=== PATIENT | female | born 1970 | race Caucasian/White ===

== ENCOUNTER 2017-04-08 09:44 | Emergency (ER) | payer OTHER ==
[2017-04-08] MEDS ORDERED: METHYLPREDNISOLONE SOD 125 MG/2 ML VIAL ONE (10:11)
[2017-04-08] MEDS ORDERED: IPRATROPIUM/ALBUTEROL 0.5/3 MG 3 ML AMPUL.NEB INHALATION ONE (10:11)
[2017-04-08 10:12] LABS: BASOPHIL# 0.1 X 10^3uL (0.0-0.1); BASOPHILS 1.3 % (0.0-2.0); EOSINOPHILS 1.7 % (0.0-6.0); EOSINOPHILS# 0.1 X 10^3uL (0.0-0.4); HEMOGLOBIN 16.2 g/dL (12.0-16.0); LYMPHOCYTES 31.2 % (20.0-40.0); LYMPHOCYTES# 2.4 X 10^3uL (0.8-3.8); MEAN CELL VOLUME 91.6 fL (80.0-100.0); MEAN CORPUS. HGB CONCENTRATION 33.7 g/dL (32.0-36.0); MEAN CORPUSCULAR HEMOGLOBIN 30.9 pg (29.0-35.0); MEAN PLATELET VOLUME 8.6 fL (7.4-10.4); MONOCYTES 5.3 % (2.0-10.0); MONOCYTES# 0.4 X 10^3uL (0.2-1.0); NEUTROPHILS 60.5 % (54.0-75.0); NEUTROPHILS# 4.8 X 10^3uL (2.6-6.7); PLATELET COUNT 292 X 10^3uL (130-440); RED BLOOD COUNT 5.24 X 10^6uL (4.20-6.10); RED CELL DISTRIBUTION WIDTH 12.4 % (11.5-14.5); WHITE BLOOD COUNT 7.8 X 10^3uL (3.9-10.7)
[2017-04-08] MEDS ORDERED: MAGNESIUM SULFATE 1 GM/2 ML VIAL ONE (10:20)
[2017-04-08] MEDS ORDERED: NORMAL SALINE 250 ML IV ONE (10:20)
[2017-04-08 10:25] LABS: BLOOD UREA NITROGEN 15 mg/dL (7-17); C-REACTIVE PROTEIN 9.3 mg/L (<10.0); CALCIUM 10.4 mg/dL (8.4-10.2); CHLORIDE 108 mmol/L (98-107); EST GLOMERULAR FILTRATION RATE > 60 mL/min; GLUCOSE 94 mg/dL (70-100); POTASSIUM 4.1 mmol/L (3.5-5.1); SODIUM 143 mmol/L (137-145)
--- NOTE | 2017-04-08 11:58 | RADIOLOGY REPORT ---
HISTORY: Chest pain. COMPARISON: None available. FINDINGS: 1 view of the chest obtained. Normal heart size and central pulmonary vessels. Normal mediastinal c ontour. No focal infiltrates. No pleural effusion. No pneumothorax. No focal bony abnormalities miriam ntified. IMPRESSION: No evidence for active cardiopulmonary disease. Final Electronic Signature: This report was electronically signed by Yahir Alva MD, FACR on 04/08/2017 11:56 AM. екатерина /
[2017-04-08 12:06] LABS: CKMB < 0.22 ng/mL (0.00-2.37); TROPONIN I < 0.012 ng/mL (0.00-0.034)
[2017-04-08 12:12] LABS: LIPASE 66 U/L (23-300)
--- NOTE | 2017-04-08 12:53 | ER NURSING DOCUMENTATION ---
Nurse's Notes [facility] Name:Lisa Baker Age:46 yrs Sex:Female :1970 Arrival Date:04/08/2017 Time:09:44 BedTrauma-C Private MD: Diagnosis:Bronchitis Asthmatic Presentation: 04/08 09:49 Presenting complaint: Patient states: pt has had 4 days of indigestion, troubles st sleeping, SOB and getting dizzy easily. Transition of care: Home. AIR CAT ACTIVATION no. Asprin Given Given in ED 324 mg po. 09:49 Acuity: LIZ 2 st 09:49 Method Of Arrival: Private Vehicle st Triage Assessment: 10:12 General: Appears in no apparent distress, Behavior is cooperative. Pain: Complains of st pain in anterior aspect of left upper chest and left breast Pain currently is 3 out of 10 on a pain scale. At worst was 8 out of 10 on a pain scale. Pain began about four days ago. Aggravated by activity makes it worst. Cardiovascular: Capillary refill < 3 seconds Heart tones present Reports shortness of breath getting dizzy easily. Rhythm is sinus rhythm Chest pain quality is pressure, "heart burn". Respiratory: Airway is patent Respiratory effort is even, unlabored, Respiratory pattern is regular, symmetrical, Breath sounds with wheezes bilaterally. Reports shortness of breath on exertion troubles sleeping. Historical: - Allergies: No known drug Allergies; - Home Meds: 1. None - PMHx: None; - PSHx: None; - Tetanus: unknown. - Ebola Screening: : Patient denies exposure to infectious person. Patient denies travel to an Ebola-affected area in the 21 days before illness onset. . - Immunization history: Unable to Obtain. - Social history: Smoking status: Patient uses tobacco products, current every day smoker. Patient uses marijuana Patient/guardian denies using alcohol. Screenin:15 Infectious Disease Risk None. Abuse screen: Denies threats or abuse. Denies injuries st from another. pt feels safe at home. Nutritional screening: No deficits noted. Assessment: 11:37 General: pt resting quietly. . st 12:23 General: pt walked around on a road test pt got dizzy and nauseated. pt pulse came up st as high as 113 O2 saturation did not drop below 92%. pt was veg when describing how her breathing and chest discomfort were but stated they were both "OK" but not gone. . Vital Signs: 09:45 BP 110 / 79 (auto/); st 09:46 Pulse 78 MON; Resp 24; Pulse Ox 91% ; Weight 54.43 kg; Height 4 ft. 11 in. (149.86 cm); st Pain 3/10; 10:00 BP 109 / 76 (auto/); st 10:01 Pulse 65 MON; Resp 12; Pulse Ox 100% ; st 10:15 BP 103 / 71 (auto/); st 10:16 Pulse 69 MON; Resp 17; Pulse Ox 98% ; st 10:30 BP 113 / 75 (auto/); st 10:31 Pulse 85 MON; Resp 19; Pulse Ox 96% ; st 11:00 BP 102 / 68 (auto/); st 11:01 Pulse 79 MON; Resp 20; Pulse Ox 95% ; st 11:30 BP 94 / 64 (auto/); st 11:31 Pulse 94 MON; Resp 20; Pulse Ox 97% ; st 12:11 Pulse 84 MON; Resp 17; Pulse Ox 95% ; st 12:16 BP 94 / 71 (auto/); st 09:46 Body Mass Index 24.24 (54.43 kg, 149.86 cm) st ED Course: 09:40 Inserted peripheral IV: 18 gauge in right antecubital area and blood collected. cb 09:40 Labs drawn. (by ED staff). Sent per order to lab. cb 09:43 EKG done per protocol. Performed by ED Staff. Shown to ED physician. st 09:47 Patient arrived in ED. arc 09:48 Matilda Booth, RN is Primary Nurse. st 09:50 telemetry monitor on. Pulse ox on. NIBP on. st 09:[address] 10:03 Labs drawn. (by ED staff). st 10:10 Keenan Jimenez MD is Attending Physician. be 10:15 Valuables Remains with patient Patient has correct armband on for positive st identification. Placed in gown. Bed in low position. 11:34 Port Xray Completed. hz 12:[address] Administered Medications: 09:55 Drug: Aspirin Chewable Tablet 324 mg; Route: PO; st 11:36 Follow up: Response: No adverse reaction st 10:02 Drug: DuoNeb (Albuterol 2.5 mg, Atrovent 0.5 mg); 3 ml; Route: Nebulizer; st 11:36 Follow up: lungs are clear. st 10:02 Drug: DuoNeb (Albuterol 2.5 mg, Atrovent 0.5 mg); 3 ml; {Note: two duo nebs placed in st container together. .} Route: Nebulizer; 11:36 Follow up: Response: lungs are clear. st 10:02 Drug: Solu-MEDROL 125 mg; Route: IVP; Site: right antecubital; st 11:36 Follow up: Response: No adverse reaction st 10:11 Drug: Magnesium Sulfate 2 grams; Route: IVPB; Infused Over: 2 hrs; Site: right st antecubital; 12:22 Follow up: IV Status: Completed infusion; IV Intake: 250ml st 12:22 Drug: NS 0.9% 1000 ml; Route: IV; Rate: bolus; Site: right antecubital; st 12:51 Follow up: IV Status: Completed infusion; IV Intake: 1000ml st Intake: 12:22 IV: 250ml; Total: 250ml. st 12:51 IV: 1000ml; Total: 1250ml. st Outcome: 12:12 Discharge ordered by . be 12:51 Discharged to home ambulatory. st 12:51 Condition: improved 12:51 Discharge instructions given to patient, significant other, Instructed on discharge instructions, follow up and referral plans. medication usage, Prescriptions given X 3. 12:51 Patient [address] the ED. st 04/09 17:00 Discharge F/U Call: Unable to reach: no answer Signatures: Alcira Lopez RN RN cb Twombly, Summer, RN RN st Coleman, Linda, RN RN lc Elliott, Brian, MD MD be Chew, Amelia, [facility] Berna Anaya
--- NOTE | 2017-04-08 12:54 | ER PHYSICIAN DOCUMENTATION ---
Physician Documentation [facility] Name:Lisa Baker Age:46 yrs Sex:Female :1970 Arrival Date:04/08/2017 Time:09:44 BedTrauma-C Private MD: Keenan Alonso Disposition: 04/08 13:20 Critical Care: not applicable. be Disposition: 04/08/17 12:12 Discharged to Home/Self Care. Impression: Bronchitis Asthmatic. - Condition is Good. - Discharge Instructions: ASTHMATIC BRONCHITIS Adult - BRONCHITIS w/ Wheezing (Adult). - Prescriptions for albuterol sulfate 90 mcg/actuation Inhalation HFA aerosol inhaler - inhale 2 puff by INHALATION route every 4-6 hours PRN chest tightness; 1 Cartridge. Prednisone 20 mg Oral Tablet - take 2 tablet by ORAL route once daily for 5 days; 10 tablet. Doxycycline Hyclate 100 mg Oral Tablet - take 1 tablet by ORAL route every 12 hours; 20 tablet. - Medical Reconciliation form form. - Follow up: Private Physician; When: As needed; Reason: Recheck today's complaints, Continuance of care. - Problem is new. - Symptoms have improved. HPI: 12:14 This 46 yrs old Female presents to ER via Private Vehicle with complaints of be Chest Pain > 30 y/o. 12:14 The patient or guardian reports chest pain that is located primarily in the substernal be area. Onset: 3 day(s) ago. The pain radiates to the left shoulder. There has been no movement of pain. Associated signs and symptoms: Pertinent positives: nausea, shortness of breath, Pertinent negatives: cough, diaphoresis, lower extremity swelling, lightheadedness, near syncope. The chest pain is described as a heaviness, squeezing. EMS care prior to arrival includes: smoker. Historical: - Allergies: No known drug Allergies; - Home Meds: 1. None - PMHx: None; - PSHx: None; - Tetanus: unknown. - Ebola Screening: : Patient denies exposure to infectious person. Patient denies travel to an Ebola-affected area in the 21 days before illness onset. . - Immunization history: Unable to Obtain. - Social history: Smoking status: Patient uses tobacco products, current every day smoker. Patient uses marijuana Patient/guardian denies using alcohol. ROS: 12:15 Cardiovascular: Positive for chest pain, with movement, Negative for edema, orthopnea, be palpitations, paroxysmal nocturnal dyspnea. 12:15 All other systems are negative. Exam: 12:16 Constitutional: This is a well developed, well nourished patient who is awake, alert, be and in no acute distress. Head/Face: Normocephalic, atraumatic. Eyes: Pupils equal round and reactive to light, extra-ocular motions intact. Lids and lashes normal. Conjunctiva and sclera are non-icteric and not injected. Cornea within normal limits. Periorbital areas with no swelling, redness, or edema. Chest/axilla: Normal chest wall appearance and motion. Nontender with no deformity. No lesions are appreciated. Abdomen/GI: Soft, non-tender, with normal bowel sounds. No distension or tympany. No guarding or rebound. No evidence of tenderness throughout. Skin: Warm, dry with normal turgor. Normal color with no rashes, no lesions, and no evidence of cellulitis. MS/ Extremity: Pulses equal, no cyanosis. Neurovascular intact. Full, normal range of motion. Neuro: Awake and alert, GCS 15, oriented to person, place, time, and situation. Cranial nerves II-XII grossly intact. Motor strength 5/5 in all extremities. Sensory grossly intact. Cerebellar exam normal. Normal gait. 12:16 Psych: Awake, alert, with orientation to person, place and time. Behavior, mood, and be affect are within normal limits. 12:16 Cardiovascular: Rate: normal, Rhythm: regular. 12:16 Respiratory: the patient does not display signs of respiratory distress, Respirations: no acute changes, is not noted, Breath sounds: wheezing, that is mild. Vital Signs: 09:45 BP 110 / 79 (auto/); st 09:46 Pulse 78 MON; Resp 24; Pulse Ox 91% ; Weight 54.43 kg; Height 4 ft. 11 in. (149.86 cm); st Pain 3/10; 10:00 BP 109 / 76 (auto/); st 10:01 Pulse 65 MON; Resp 12; Pulse Ox 100% ; st 10:15 BP 103 / 71 (auto/); st 10:16 Pulse 69 MON; Resp 17; Pulse Ox 98% ; st 10:30 BP 113 / 75 (auto/); st 10:31 Pulse 85 MON; Resp 19; Pulse Ox 96% ; st 11:00 BP 102 / 68 (auto/); st 11:01 Pulse 79 MON; Resp 20; Pulse Ox 95% ; st 11:30 BP 94 / 64 (auto/); st 11:31 Pulse 94 MON; Resp 20; Pulse Ox 97% ; st 12:11 Pulse 84 MON; Resp 17; Pulse Ox 95% ; st 12:16 BP 94 / 71 (auto/); st 09:46 Body Mass Index 24.24 (54.43 kg, 149.86 cm) st MDM: 10:10 Patient medically screened. be 12:17 Differential diagnosis: acute myocardial infarction, acute pericarditis, anxiety, chest be wall pain, cholecystitis, Cholelithiasis esophagitis, gastritis, gastroesophageal reflux disease (GERD), pericarditis, pulmonary embolus, unstable angina, Asthmatic bronchitis. Patient took aspirin in the Emergency Department. Data reviewed: lab test result(s), EKG, radiologic studies. 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 ECG:. 13:20 Data reviewed: and as a result, I will discharge patient, administer IV fluids, NS be bolus, DuoNeb, magnesium and SoluMedrol. 13:21 Patient did not receive fibrinolytic due to not indicated. be 04/08 11:12 Order name: CBC AUTO DIF, MDIF/RMOR IF IND; Complete Time: 13:23 EDMS 04/08 11:12 Order name: BASIC METABOLIC PANEL; Complete Time: 13:23 EDMS 04/08 11:12 Order name: C-REACTIVE PROTEIN; Complete Time: 13:23 EDMS 04/08 11:12 Order name: DDIMER; Complete Time: 13:23 EDMS 04/08 11:28 Order name: BNP,NT-PRO; Complete Time: 13:23 EDMS 04/08 Interpretation: Normal. be 04/08 12:07 Order name: CKMB; Complete Time: 13:23 EDMS 04/08 13:22 Interpretation: Normal. 04/08 12:07 Order name: TROPONIN I; Complete Time: 13:23 EDMS 04/08 13:22 Interpretation: Normal. 04/08 12:15 Order name: LIPASE; Complete Time: 13:23 EDMS 04/08 13:22 Interpretation: Normal. be 04/08 12:30 Order name: TROPONIN I; Complete Time: 13:23 EDMS 04/08 13:22 Interpretation: Normal. be 04/10 03:44 Order name: TROPONIN I EDMS 04/08 12:00 Order name: CHEST; SING[place]IEW [id number]; Complete Time: 13:23 EDMS 04/08 13:23 Interpretation: Normal. be 04/08 10:04 Order name: EKG - 12 Lead; Complete Time: 10:04 st EC:17 Rate is 72 beats/min. Rhythm is regular, Normal Sinus Rhythm with No ectopy. QRS [place] be is Normal. [place] interval is normal. QRS interval is normal. QT interval is normal. No Q waves. T waves are Normal. No ST changes noted. Clinical impression: Normal ECG. Interpreted by me. Dispensed Medications: 09:55 Drug: Aspirin Chewable Tablet 324 mg; Route: PO; st 11:36 Follow up: Response: No adverse reaction st 10:02 Drug: DuoNeb (Albuterol 2.5 mg, Atrovent 0.5 mg); 3 ml; Route: Nebulizer; st 11:36 Follow up: lungs are clear. st 10:02 Drug: DuoNeb (Albuterol 2.5 mg, Atrovent 0.5 mg); 3 ml; {Note: two duo nebs placed in st container together. .} Route: Nebulizer; 11:36 Follow up: Response: lungs are clear. st 10:02 Drug: Solu-MEDROL 125 mg; Route: IVP; Site: right antecubital; st 11:36 Follow up: Response: No adverse reaction st 10:11 Drug: Magnesium Sulfate 2 grams; Route: IVPB; Infused Over: 2 hrs; Site: right st antecubital; 12:22 Follow up: IV Status: Completed infusion; IV Intake: 250ml st 12:22 Drug: NS 0.9% 1000 ml; Route: IV; Rate: bolus; Site: right antecubital; st 12:51 Follow up: IV Status: Completed infusion; IV Intake: 1000ml st Signatures: Matilda Booth RN RN st Elliott, Brian, MD MD be
== END 2017-04-08 12:52 | disposition home or self-care (01) ==
LOC: ER 09:44
DX: J45.998 Other asthma (principal); R07.89 Other chest pain; F17.210 Nicotine dependence, cigarettes, uncomplicated
CPT/HCPCS: 36415; 71010; 80048; 82553; 83605; 83690; 83880; 84484; 85025; 85379; 86140; 93005; 94640; 96365; 96366; 96375; 99285; J2930; J3475; J7050; J7620